=== PATIENT | female | born 1955 | race Caucasian/White ===

== ENCOUNTER 2017-01-15 10:15 | Emergency (ER) | payer SELFPAY ==
[~2017-01-15] VITALS: Wt 72.3 kg
[2017-01-15] MEDS ORDERED: IBUP-1542 PO (10:48)
[2017-01-15] MEDS ORDERED: LEVO175T6 PO (10:49)
[2017-01-15] MEDS ORDERED: IBUPROFEN 800 MG TAB PO ONE (11:00)
[2017-01-15] MEDS ORDERED: METF500T4 PO (11:02)
[2017-01-15 11:08] VITALS: BP 158/77; PULSE 78; RESP 18
--- NOTE | 2017-01-15 13:41 | ERD ---
ER Documentation Chief Complaint Date/Time DATE: 01/15/17 TIME: 13:40 Chief Complaint abd pain and headache for 8 days. no n/v. mild ragland. no neuro def HPI Patient is a 61-year-old female with hypertension and prediabetes who presents with abdominal pain. She said that she had upper abdominal pain as well as bilateral arm and leg pain over the past 7 days. The symptoms come and go. She has no fevers. She had no vomiting. She did have 2 episodes of diarrhea which was nonbloody. She has had no treatment yet. Upon review of old medical records this is the patient's first visit to the emergency department. She does not currently have a primary doctor. ROS All systems reviewed and are negative except as per history of present illness. Medications Home Meds Active Scripts Ibuprofen* (Motrin*) 600 Mg Tab, 600 MG PO Q6H Y for PAIN AND OR ELEVATED TEMP, #30 TAB Prov:NATY GAVIN MD 01/15/17 Reported Medications Metformin* (Glucophage*) 500 Mg Tab, 250 MG PO BID, #30 TAB 01/15/17 Levothyroxine Sodium* (Levothyroxine Sodium*) 175 Mcg Tablet, 175 MCG PO BEFORE BREAKFAST, #30 TAB 01/15/17 Allergies Allergies: Coded Allergies: No Known Allergy (Unverified , 01/15/17) PMhx/Soc Medical and Surgical Hx: pt denies Medical Hx History of Surgery: No Anesthesia Reaction: No Hx Neurological Disorder: No Hx Respiratory Disorders: No Hx Cardiac Disorders: No Hx Psychiatric Problems: No Hx Miscellaneous Medical Probl: Yes (PRE DM,HYPERTHYROIDISM) Hx Alcohol Use: No Hx Substance Use: No Hx Tobacco Use: No Smoking Status: Never smoker FmHx Family History: diabetes Physical Exam Vitals Vital Signs Date Time Temp Pulse Resp B/P Pulse Ox O2 Delivery O2 Flow Rate FiO2 01/15/17 11:08 78 18 158/77 98 Room Air 01/15/17 10:18 98.5 72 20 184/74 95 Physical Exam Const: No acute distress Head: Atraumatic Eyes: Normal Conjunctiva ENT: Normal External Ears, Nose and Mouth. Neck: Full range of motion..~ No meningismus. Resp: Clear to auscultation bilaterally Cardio: Regular rate and rhythm, no murmurs Abd: Soft, non tender, non distended. Normal bowel sounds Skin: No petechiae or rashes Back: No midline or flank tenderness Ext: No cyanosis, or edema Neur: Awake and alert Psych: Normal Mood and Affect Results 24 hrs Current Medications Medications (Trade) Dose Ordered Sig/Jonatan Route PRN Reason Start Time Stop Time Status Last Admin Dose Admin Ibuprofen (Motrin) 800 mg ONCE ONCE PO 01/15/17 11:00 01/15/17 11:01 DC 01/15/17 10:43 Procedures/MDM Patient is a 61-year-old female who presents with whole body pain. Her abdominal exam is benign and she has no pain with palpation. She has bilateral upper and lower extremity pain. I believe she likely has a viral illness at this point. I doubt significant intra-abdominal process such as appendicitis, cholecystitis, pink otitis, or bowel obstruction. She was given ibuprofen for symptoms. I believe outpatient management is appropriate but she will need close follow-up with the local clinics within 24-48 hours. She can return for any worsening symptoms. Departure Diagnosis: Primary Impression: Viral syndrome Additional Impression: Abdominal pain Abdominal location: unspecified location Qualified Code: R10.9 - Abdominal pain, unspecified location Condition: Fair Patient Instructions: Abdominal Pain [facility] Usted se ragland hecho un examen mdico de control que le indica que no est en gary condicin que requiera tratamiento urgente en el Departamento de Emergencia. Un estudio ms profundo y el tratamiento de licona condicin pueden esperar sin ningn riesgo hasta que usted sea atendida/o en el consultorio de licona mdico o gary cl jaden. Es responsabilidad suya arreglar gary jody para el seguimiento del curtis. MANEJO DE CONDICIONES NO URGENTES EN EL FUTURO 1) Si usted tiene un mdico de atencin primaria: Usted debera llamar a licona mdico de atencin primaria antes de venir al departamento de emergencia. Despus de las horas de consultorio, licona doctor o licona asociado/a est disponible por telfono. El mdico o enfermero de marianne en el servicio telefnico puede asesorarle por arianna medio para atender el problema, o curtis contrario se puede programar gary jody. 2) Si usted no tiene un mdico de atencin primaria: Llame al mdico o clnica de referencia que aparece abajo qamar las horas de consultorio para hacer gary jody para que le vean. CLINICAS: [facility] [phone] [facility] [phone] [facility] [phone] [place] [phone] [place] [id number] [phone] [facility]. [phone] [address] Additional Instructions: Llame al doctor MAANA y robbie gary JODY PARA DENTRO DE 1-2 CLARK.Dgale a la secretaria que nosotros le instruimos hacer esta jody.Avise o llame si licona condicin se empeora antes de la jody. Regresa aqui si peor o no mejor. NATY GAVIN MD Jan 15, 2017 13:41
== END 2017-01-15 11:43 | disposition home or self-care (01) ==
LOC: E/R 10:15
DX: B34.9 Viral infection, unspecified (principal); I10 Essential (primary) hypertension; Z79.84 Long term (current) use of oral hypoglycemic drugs
CPT/HCPCS: 99283